=== PATIENT | male | born 1970 | race Caucasian/White ===

== ENCOUNTER 2021-04-24 12:49 | Emergency (ER) | payer OTHER ==
[2021-04-24] MEDS ORDERED: methylPREDNISolone Sodium Succinate 125 MG/2 ML SDV IVPUSH ONE (13:11)
[2021-04-24] MEDS ORDERED: Pantoprazole 40 MG Vial IVPUSH ONE (13:12)
[2021-04-24] MEDS ORDERED: Pantoprazole 40 MG Vial ONE (13:20)
--- NOTE | 2021-04-24 13:22 | EDM.PDOC ---
ED HPI GENERAL MEDICAL PROBLEM - General Stated Complaint: BEE STING Time Seen by Provider: 04/24/21 12:49 Source of Information: Reports: Patient History Limitations: Reports: No Limitations - History of Present Illness INITIAL COMMENTS - FREE TEXT/NARRATIVE: This patient presents to the emergency room via EMS following a bee sting. He states he has had numerous stings throughout his life with the last on approximately 1 month ago. He states he had quite a bit of swelling and itching with that sting but did not have any difficulty breathing. Today [place] when a bee went down the back of his sweatshirt and stung him on his left shoulder. He states he had immediate pain, itching and then very quickly developed difficulty breathing and did have a syncopal episode with this. Bystanders did administer epinephrine and he was given 2 tablets of Benadryl. He states now that he feels fine, denies any difficulty breathing. He continues to have some itching at the sting site. Onset: Today, Sudden - Related Data Allergies Allergy/AdvReac Type Severity Reaction Status Date / Time bee venom protein (honey bee) Allergy Anaphylactic Verified 04/24/21 13:57 Shock Home Meds: Home Meds EPINEPHrine [Epipen 2-Salazar] 0.3 mg IJ ASDIRECTED #1 auto.injct 04/24/21 [Rx] Pantoprazole Sodium [Protonix] 40 mg PO DAILY #7 suspdr.pkt 04/24/21 [Rx] predniSONE 40 mg PO WITHBREAKFAST 4 Days #8 tab 04/24/21 [Rx] ED ROS ALLERGIC REACTION - Review of Systems Review Of Systems: Comprehensive ROS is negative, except as noted in HPI. ED EXAM GENERAL NO PERIP PULSE - Physical Exam Exam: See Below Exam Limited By: No Limitations General Appearance: Alert, WD/WN, No Apparent Distress Eye Exam: Bilateral Eye: PERRL (Pupils erythematous and injected bilaterally) Ears: Normal External Exam Nose: Normal Inspection Throat/Mouth: Normal Inspection, Normal Oropharynx, No Airway Compromise. No: Dysphagia Head: Atraumatic, Normocephalic Neck: Normal Inspection, Supple, Non-Tender, Full Range of Motion Respiratory/Chest: No Respiratory Distress, Lungs Clear, Normal Breath Sounds, No Accessory Muscle Use, Chest Non-Tender Cardiovascular: Regular Rate, Rhythm Back Exam: Normal Inspection, Full Range of Motion, Other (Erythematous area over left shoulder that is mildly swollen, approximately 5 cm in diameter) Neurological: Alert, Oriented Psychiatric: Normal Affect Skin Exam: Warm, Dry Course - Orders/Labs/Meds Meds: Medications Discontinued Medications Generic Name Dose Route Start Last Admin Trade Name Oz PRN Reason Stop Dose Admin Methylprednisolone Sodium Succinate 125 mg 04/24/21 13:11 04/24/21 13:29 Methylprednisolone Sodium Succinate 125 Mg/2 Ml Sdv IVPUSH 04/24/21 13:12 125 mg ONETIME ONE Administration Methylprednisolone Sodium Succinate Confirm 04/24/21 13:35 04/24/21 14:00 Methylprednisolone Sodium Succinate 125 Mg/2 Ml Sdv Administered 04/24/21 13:36 Not Given Dose 125 mg .ROUTE .STK-MED ONE Pantoprazole Sodium Confirm 04/24/21 13:20 04/24/21 14:00 Pantoprazole 40 Mg Vial Administered 04/24/21 13:21 Not Given Dose 40 mg .ROUTE .STK-MED ONE Pantoprazole Sodium 40 mg 04/24/21 13:12 04/24/21 13:15 Pantoprazole 40 Mg Vial IVPUSH 04/24/21 13:13 40 mg ONETIME ONE Administration - Re-Assessments/Exams Free Text/Narrative Re-Assessment/Exam: 04/24/21 14:20 This patient presents for evaluation of anaphylaxsis. Signs and symptoms are consistent with anaphylaxis. They look well at discharge and symptoms have stabilized and improved. We did watch here for 2 hours prior to considering discharge. Patient was treated here with medications as noted above. Will send home with epipen, steroids, antihistamines. Return of anaphylactic symptoms were discussed with patient and they were instructed to inject epi-pen and call 911 should these symptoms occur. Given the rapidity of resolution, lack of serious systemic symptoms, lack of respiratory difficulty and no oral or pharyngeal swelling, would not admit at this time for anaphylaxis. There is no signs of anaphylactic shock. Departure - Departure Time of Disposition: 14:20 Disposition: Home, Self-Care 01 Condition: Good Clinical Impression: Anaphylactic reaction - Discharge Information *PRESCRIPTION DRUG MONITORING PROGRAM REVIEWED*: Not Applicable Prescriptions: EPINEPHrine [Epipen 2-Salazar] 0.3 mg IJ ASDIRECTED #1 auto.injct predniSONE 40 mg PO WITHBREAKFAST 4 Days #8 tab Pantoprazole Sodium [Protonix] 40 mg PO DAILY #7 suspdr.pkt Instructions: Anaphylactic Reaction, Adult, [id number], Allergies, Adult Referrals: PCP,None [Primary Care Provider] -
[2021-04-24] MEDS ORDERED: methylPREDNISolone Sodium Succinate 125 MG/2 ML SDV ONE (13:35)
== END 2021-04-24 14:19 | disposition home or self-care (01) ==
LOC: LB.ED 12:49
DX: T78.2XXA Anaphylactic shock, unspecified, initial encounter (principal); Z91.030 Bee allergy status
CPT/HCPCS: 96374; 96375; 99284-25; C9113; J2930